=== PATIENT | female | born 1985 | race Caucasian/White ===

== ENCOUNTER 2017-05-21 22:31 | Emergency (ER) | payer BC | END 2017-05-22 01:51 | disposition home or self-care (01) | LOC: D.ER 22:31 | DX: K59.00 Constipation, unspecified (principal) ==

== ENCOUNTER 2017-06-14 21:20 | Emergency (ER) | payer BC ==
[2017-06-14 21:58] LABS: BASOPHILS 0.3 % (0-2); EOSINOPHILS 1.7 % (0-7); HEMATOCRIT 39.6 % (36.0-48.0); HEMOGLOBIN 12.4 g/dL (12-16); IMMATURE GRANULOCYTES 0.3 % (0-5); LYMPHOCYTES 21.1 % (15-50); MCH 27.3 pg (26.0-34.0); MCHC 31.3 g/dL (31.0-37.0); MCV 87.2 fL (80.0-100.0); MEAN PLATELET VOLUME 11.2 fL (7.4-10.4); MONOCYTES 5.2 % (2-11); NEUTROPHILS 71.4 % (40-80); PLATELET COUNT 240 10x3/uL (130-400); RBC 4.54 10x6/uL (4.00-5.40); RDW 14.2 % (11.5-14.5); WBC 11.5 10x3/uL (4.8-10.8)
[2017-06-14 22:06] LABS: APPEARANCE CLEAR (CLEAR); BILIRUBIN NEGATIVE (NEGATIVE); COLOR YELLOW (YELLOW); GLUCOSE NEGATIVE (NEGATIVE); KETONE NEGATIVE (NEGATIVE); NITRITE NEGATIVE (NEGATIVE); PROTEIN NEGATIVE (NEGATIVE); SPECIFIC GRAVITY 1.025 (1.005-1.020); UROBILINOGEN NORMAL (NORMAL)
[2017-06-14 22:07] LABS: BACTERIA FEW /hpf (NONE SEEN); RED CELLS - URINE OCC /hpf (0-5)
[2017-06-14 22:12] LABS: ALBUMIN 3.2 g/dL (3.4-5.0); ANION GAP 11.9 mmol/L (8-16); BILIRUBIN - TOTAL 0.28 mg/dL (0.2-1.3); CALCIUM 8.8 mg/dL (8.5-10.1); CREATININE - SERUM 1.1 mg/dL (0.6-1.3); POTASSIUM - SERUM 3.9 mmol/L (3.5-5.1); PROTEIN - SERUM 7.7 g/dL (6.4-8.2)
== END 2017-06-15 01:57 | disposition home or self-care (01) ==
LOC: D.ER 21:20
PROVIDERS: Family Medicine
DX: R10.12 Left upper quadrant pain (principal); R11.10 Vomiting, unspecified; B27.90 Infectious mononucleosis, unspecified without complication; R16.1 Splenomegaly, not elsewhere classified

== ENCOUNTER → 2017-09-28 07:28 | Outpatient (CLI) | payer OTHER ==
[2017-09-28 10:16] LABS: ALBUMIN 3.3 g/dL (3.4-5.0); BILIRUBIN - DIRECT 0.06 mg/dL (0.00-0.30); BILIRUBIN - INDIRECT 0.2 mg/dL (0.00-1.00); BILIRUBIN - TOTAL 0.26 mg/dL (0.2-1.3); PROTEIN - SERUM 7.9 g/dL (6.4-8.2)
== END | disposition home or self-care (01) ==
LOC: D.RAD 07:28
PROVIDERS: Internal Medicine Gastroenterology
DX: K56.7 Ileus, unspecified (principal); R10.9 Unspecified abdominal pain

== ENCOUNTER → 2017-10-09 08:45 | Outpatient (CLI) | payer OTHER ==
[2017-10-09 09:54] LABS: ALBUMIN 3.2 g/dL (3.4-5.0); BILIRUBIN - DIRECT 0.07 mg/dL (0.00-0.30); BILIRUBIN - INDIRECT 0.16 mg/dL (0.00-1.00); BILIRUBIN - TOTAL 0.23 mg/dL (0.2-1.3); PROTEIN - SERUM 7.8 g/dL (6.4-8.2)
== END | disposition home or self-care (01) ==
LOC: D.US 08:30
PROVIDERS: Internal Medicine Gastroenterology
DX: K76.0 Fatty (change of) liver, not elsewhere classified (principal)

== ENCOUNTER 2018-01-06 14:39 | Emergency (ER) | payer OTHER ==
[2018-01-06 15:25] LABS: APPEARANCE HAZY (CLEAR); BILIRUBIN NEGATIVE (NEGATIVE); COLOR STRAW (YELLOW); GLUCOSE NEGATIVE (NEGATIVE); KETONE NEGATIVE (NEGATIVE); NITRITE NEGATIVE (NEGATIVE); PH 7.5 (5.0-6.0); PROTEIN NEGATIVE (NEGATIVE); SPECIFIC GRAVITY 1.005 (1.005-1.020); UROBILINOGEN NORMAL (NORMAL)
[2018-01-06 15:29] LABS: EPITHELIAL CELLS 0-5 /hpf (0-5); RED CELLS - URINE 0-5 /hpf (0-5); WHITE CELLS - URINE OCC /hpf (0-5)
[2018-01-06 15:30] LABS: BACTERIA FEW /hpf (NONE SEEN)
[2018-01-06 17:05] LABS: BASOPHILS 0.3 % (0-2); EOSINOPHILS 3.1 % (0-7); HEMOGLOBIN 12.2 g/dL (12-16); IMMATURE GRANULOCYTES 0.2 % (0-5); MCH 26.5 pg (26.0-34.0); MCHC 31.3 g/dL (31.0-37.0); MCV 84.8 fL (80.0-100.0); MEAN PLATELET VOLUME 11.4 fL (7.4-10.4); MONOCYTES 7.1 % (2-11); NEUTROPHILS 65.3 % (40-80); PLATELET COUNT 245 10x3/uL (130-400); RDW 14.4 % (11.5-14.5); WBC 10.2 10x3/uL (4.8-10.8)
[2018-01-06 17:26] LABS: ALBUMIN 3.2 g/dL (3.4-5.0); ANION GAP 10.9 mmol/L (8-16); BILIRUBIN - TOTAL 0.2 mg/dL (0.2-1.3); CREATININE - SERUM 1.3 mg/dL (0.6-1.3); POTASSIUM - SERUM 3.9 mmol/L (3.5-5.1)
== END 2018-01-06 19:40 | disposition home or self-care (01) ==
LOC: D.ER 14:39
PROVIDERS: Emergency Medicine
DX: R10.9 Unspecified abdominal pain (principal)

== ENCOUNTER 2018-06-03 22:56 | Emergency (ER) | payer OTHER ==
[~2018-06-03] VITALS: Ht 167.6 cm; Wt 109.1 kg
[2018-06-03 23:04] VITALS: Ht 167.6 cm; Wt 109.1 kg
[2018-06-03] MEDS ORDERED: CYMBALTA20 MG (23:06)
[2018-06-03] MEDS ORDERED: TIROSINT13 MCG (23:06)
[2018-06-03] MEDS ORDERED: ESTROPIPATE0.75 MG (23:06)
[2018-06-03 23:29] LABS: BASOPHILS 0.2 % (0-2); EOSINOPHILS 2.7 % (0-7); HEMATOCRIT 41.3 % (36.0-48.0); HEMOGLOBIN 13.4 g/dL (12-16); IMMATURE GRANULOCYTES 0.1 % (0-5); LYMPHOCYTES 38.8 % (15-50); MCH 26.6 pg (26.0-34.0); MCHC 32.4 g/dL (31.0-37.0); MCV 82.1 fL (80.0-100.0); MEAN PLATELET VOLUME 10.8 fL (7.4-10.4); MONOCYTES 5.2 % (2-11); PLATELET COUNT 251 10x3/uL (130-400); RBC 5.03 10x6/uL (4.00-5.40); RDW 13.1 % (11.5-14.5); WBC 8.2 10x3/uL (4.8-10.8)
[2018-06-03 23:37] LABS: HCG URINE NEGATIVE (NEGATIVE)
[2018-06-03 23:44] LABS: APPEARANCE HAZY (CLEAR); BACTERIA FEW /hpf (NONE SEEN); BILIRUBIN NEGATIVE (NEGATIVE); COLOR YELLOW (YELLOW); EPITHELIAL CELLS 0-5 /hpf (0-5); GLUCOSE NEGATIVE (NEGATIVE); KETONE NEGATIVE (NEGATIVE); NITRITE NEGATIVE (NEGATIVE); PROTEIN TRACE mg/dL (NEGATIVE); RED CELLS - URINE 0-5 /hpf (0-5); UROBILINOGEN NORMAL (NORMAL)
[2018-06-03 23:46] LABS: ALBUMIN 3.1 g/dL (3.4-5.0); ALKALINE PHOSPHATASE 67 U/L (46-116); ALT (SGPT) 27 U/L (10-68); AMYLASE - SERUM 22 U/L (25-115); BILIRUBIN - TOTAL 0.17 mg/dL (0.2-1.3); CALC OSMOLALITY 273 mosm/kg (275-300); CALCIUM 8.8 mg/dL (8.5-10.1); CARBON DIOXIDE 23.4 mmol/L (21.0-32.0); CHLORIDE - SERUM 101 mmol/L (98-107); CREATININE - SERUM 0.9 mg/dL (0.6-1.3); GLUCOSE 122 mg/dL (74-106); LIPASE 200 U/L (73-393); POTASSIUM - SERUM 3.8 mmol/L (3.5-5.1); PROTEIN - SERUM 7.7 g/dL (6.4-8.2); SODIUM 137 mmol/L (136-145); UREA NITROGEN 10 mg/dL (7-18); eGFR NON AFRICAN AMERICAN 75 mL/min (90-120)
[2018-06-04] MEDS ORDERED: ZOFRAN8 MG PO (01:38)
[2018-06-04] MEDS ORDERED: LEVAQUIN750 MG PO (01:38)
[2018-06-04] MEDS ORDERED: TORADOL10 MG PO (01:39)
[2018-06-04 02:11] VITALS: BP 128/70
== END 2018-06-04 02:09 | disposition home or self-care (01) ==
LOC: D.ER 22:56
PROVIDERS: Family Medicine
DX: R10.9 Unspecified abdominal pain (principal); R11.2 Nausea with vomiting, unspecified; N12 Tubulo-interstitial nephritis, not specified as acute or chronic; E07.9 Disorder of thyroid, unspecified

== ENCOUNTER 2018-08-24 17:21 | Emergency (ER) | payer OTHER ==
[~2018-08-24] VITALS: Ht 167.6 cm; Wt 109.1 kg
[~2018-08-24 17:21] MED LIST: CYMBALTA20 MG; ESTROPIPATE0.75 MG; LEVAQUIN750 MG PO; TIROSINT13 MCG; TORADOL10 MG PO; ZOFRAN8 MG PO
[2018-08-24 17:35] VITALS: Ht 167.6 cm; Wt 109.1 kg
[2018-08-24] MEDS ORDERED: MIRALAX17 GM PO (17:37)
[2018-08-24] MEDS ORDERED: CHRONULAC30 ML PO (17:37)
[2018-08-24] MEDS ORDERED: AMITIZA24 MCG PO (17:38)
[2018-08-24 18:38] LABS: BASOPHILS 0.2 % (0-2); EOSINOPHILS 0.8 % (0-7); HEMATOCRIT 39.8 % (36.0-48.0); HEMOGLOBIN 12.9 g/dL (12-16); IMMATURE GRANULOCYTES 0.2 % (0-5); LYMPHOCYTES 22.8 % (15-50); MCH 27.1 pg (26.0-34.0); MCHC 32.4 g/dL (31.0-37.0); MCV 83.6 fL (80.0-100.0); MEAN PLATELET VOLUME 11.1 fL (7.4-10.4); MONOCYTES 5.6 % (2-11); NEUTROPHILS 70.4 % (40-80); PLATELET COUNT 254 10x3/uL (130-400); RBC 4.76 10x6/uL (4.00-5.40); RDW 13.4 % (11.5-14.5); WBC 10.1 10x3/uL (4.8-10.8)
[2018-08-24 18:53] LABS: ALBUMIN 2.9 g/dL (3.4-5.0); ALKALINE PHOSPHATASE 80 U/L (46-116); ALT (SGPT) 20 U/L (10-68); BILIRUBIN - TOTAL 0.28 mg/dL (0.2-1.3); CALC OSMOLALITY 273 mosm/kg (275-300); CALCIUM 8.7 mg/dL (8.5-10.1); CARBON DIOXIDE 26.5 mmol/L (21.0-32.0); CHLORIDE - SERUM 102 mmol/L (98-107); CREATININE - SERUM 0.9 mg/dL (0.6-1.3); GLUCOSE 105 mg/dL (74-106); POTASSIUM - SERUM 4.4 mmol/L (3.5-5.1); PROTEIN - SERUM 7.8 g/dL (6.4-8.2); SODIUM 138 mmol/L (136-145); UREA NITROGEN 7 mg/dL (7-18); eGFR NON AFRICAN AMERICAN 75 mL/min (90-120)
[2018-08-24 19:00] LABS: AMYLASE - SERUM 22 U/L (25-115); HCG - QUANTITATIVE (MATERNAL) 1 mIU/mL; LIPASE 175 U/L (73-393)
[2018-08-24 19:01] LABS: APPEARANCE CLEAR (CLEAR); BILIRUBIN NEGATIVE (NEGATIVE); COLOR YELLOW (YELLOW); GLUCOSE NEGATIVE (NEGATIVE); KETONE NEGATIVE (NEGATIVE); NITRITE NEGATIVE (NEGATIVE); PROTEIN NEGATIVE (NEGATIVE); SPECIFIC GRAVITY 1.015 (1.005-1.020); UROBILINOGEN NORMAL (NORMAL)
[2018-08-24 20:39] VITALS: BP 128/85
== END 2018-08-24 22:08 | disposition home or self-care (01) ==
LOC: D.ER 17:21
PROVIDERS: Family Medicine
DX: K59.00 Constipation, unspecified (principal); R10.9 Unspecified abdominal pain

== ENCOUNTER → 2019-04-26 15:23 | Outpatient (CLI) | payer OTHER ==
[2018-08-24 17:35] VITALS: BMI 38.8
[~2019-04-26 15:23] MED LIST changes: +AMITIZA24 MCG PO; +CHRONULAC30 ML PO; +MIRALAX17 GM PO; +ZOFRAN ODT4 MG/UDTAB PO
== END | disposition home or self-care (01) ==
LOC: D.RAD 15:23
PROVIDERS: ATTEND Nurse Practitioner Family
DX: R10.9 Unspecified abdominal pain (principal)

== ENCOUNTER 2019-04-27 13:52 | Emergency (ER) | payer OTHER ==
[~2019-04-27] VITALS: Ht 167.6 cm; Wt 115.5 kg
[~2019-04-27 13:52] MED LIST changes: -ZOFRAN ODT4 MG/UDTAB PO
[2019-04-27 13:57] VITALS: Ht 167.6 cm; Wt 115.5 kg
[2019-04-27 15:09] LABS: BASOPHILS 0.1 % (0-2); HEMATOCRIT 36.7 % (36.0-48.0); IMMATURE GRANULOCYTES 0.1 % (0-5); LYMPHOCYTES 22.9 % (15-50); MCH 27.3 pg (26.0-34.0); MCHC 32.7 g/dL (31.0-37.0); MCV 83.4 fL (80.0-100.0); MEAN PLATELET VOLUME 10.7 fL (7.4-10.4); MONOCYTES 4.2 % (2-11); NEUTROPHILS 70.7 % (40-80); PLATELET COUNT 230 10x3/uL (130-400); RDW 13.6 % (11.5-14.5); WBC 8.6 10x3/uL (4.8-10.8)
[2019-04-27 15:10] LABS: APPEARANCE CLEAR (CLEAR); BILIRUBIN NEGATIVE (NEGATIVE); COLOR YELLOW (YELLOW); GLUCOSE NEGATIVE (NEGATIVE); KETONE NEGATIVE (NEGATIVE); NITRITE NEGATIVE (NEGATIVE); PROTEIN NEGATIVE (NEGATIVE); UROBILINOGEN NORMAL (NORMAL)
[2019-04-27 15:11] LABS: EPITHELIAL CELLS 0-5 /hpf (0-5); RED CELLS - URINE NONE SEEN /hpf (0-5); WHITE CELLS - URINE 0-5 /hpf (0-5)
[2019-04-27 15:28] LABS: ALBUMIN 2.9 g/dL (3.4-5.0); ALKALINE PHOSPHATASE 77 U/L (46-116); ALT (SGPT) 23 U/L (10-68); BILIRUBIN - TOTAL 0.28 mg/dL (0.2-1.3); CALC OSMOLALITY 274 mosm/kg (275-300); CALCIUM 8.4 mg/dL (8.5-10.1); CARBON DIOXIDE 27.5 mmol/L (21.0-32.0); CHLORIDE - SERUM 102 mmol/L (98-107); CREATININE - SERUM 0.9 mg/dL (0.6-1.3); GLUCOSE 142 mg/dL (74-106); POTASSIUM - SERUM 3.7 mmol/L (3.5-5.1); PROTEIN - SERUM 7.4 g/dL (6.4-8.2); SODIUM 137 mmol/L (136-145); UREA NITROGEN 9 mg/dL (7-18); eGFR NON AFRICAN AMERICAN 75 mL/min (90-120)
[2019-04-27 15:39] LABS: THYROID STIMULATING HORMONE 1.56 uIU/mL (0.36-3.74)
[2019-04-27] MEDS ORDERED: ZOFRAN ODT4 MG/UDTAB PO (16:28)
[2019-04-27 17:15] VITALS: BP 138/84
== END 2019-04-27 17:16 | disposition home or self-care (01) ==
LOC: D.ER 13:52
PROVIDERS: Emergency Medicine
DX: R53.1 Weakness (principal)

== ENCOUNTER 2019-11-14 19:34 | Emergency (ER) | payer OTHER ==
[~2019-11-14] VITALS: Ht 167.6 cm; Wt 118.2 kg
[~2019-11-14 19:34] MED LIST changes: +ZOFRAN ODT4 MG/UDTAB PO
[2019-11-14 20:12] VITALS: Ht 167.6 cm; Wt 118.2 kg
[2019-11-14] MEDS ORDERED: HYDROXYCHLOROQUINE (20:20)
[2019-11-14] MEDS ORDERED: [UNRECOGNIZED DRUG - OTHER] (20:20)
[2019-11-14] MEDS ORDERED: HYDROCHLOROTH12.5 M1 PO (20:20)
[2019-11-14] MEDS ORDERED: STERAPRED DS 1010 MG PO (21:08)
[2019-11-14] MEDS ORDERED: MUCINEX DM ER1 EAC1 PO (21:08)
[2019-11-14] MEDS ORDERED: ALBUTEROL SULF8.5 GM INH (21:08)
[2019-11-14] MEDS ORDERED: AUGMENTIN 875-11 TAB PO (21:08)
[2019-11-14 22:09] VITALS: BP 133/85
== END 2019-11-14 22:09 | disposition home or self-care (01) ==
LOC: D.ER 19:34
DX: J18.1 Lobar pneumonia, unspecified organism (principal); R05 Cough; I10 Essential (primary) hypertension; R06.02 Shortness of breath; R50.9 Fever, unspecified